=== PATIENT | male | born 1965 | race Caucasian/White ===

== ENCOUNTER 2018-01-13 12:02 | Emergency (ER) | payer OTHER ==
[~2018-01-13] VITALS: Ht 182.9 cm; Wt 95.3 kg
--- NOTE | ~2018-01-13 | EKG ---
[place] [address] [address] [place] [address] ELECTROCARDIOGRAM REPORT Name: DU HOLLOWAY Room #: REG KIMMIE Degroot#: [id number] Admission: 01/13/18 Attend Phys: Discharge: Date of : 65 Report #: [id number] THIS REPORT FOR: //name// [facility] ED Test Date: 2018-01-13 Test Time: 13:14:04 Pat Name: DU HOLLOWAY Department: Room: Gender: [place]: : 1965 Requested By: Jesu Cotto Order Number: [id number] MD: Elroy Fernandez Measurements Intervals [place] Rate: 64 P: 60 HI: 172 QRS: 42 QRSD: 87 T: 60 QT: 407 QTc: 420 Interpretive Statements Sinus rhythm Normal tracing No previous ECG available for comparison Electronically Signed On 01-13-2018 14:59:29 CDT by Elroy Fernandez [email or web address] <ELECTRONICALLY SIGNED> By: Elroy Fernandez MD, LOCATED WITHIN [facility] 01/13/18 1459 1314 1314 Elroy Fernandez MD, FACC /EPI
[2018-01-13 12:38] LABS: ABSOLUTE NEUTROPHILS 5.4 thou/uL (1.4-8.2); BASOPHILS 1.4 % (0.0-2.0); EOSINOPHILS 3.3 % (0.0-3.0); HEMATOCRIT 50.7 % (42.0-52.0); HEMOGLOBIN 17.6 gm/dL (14.0-18.0); LYMPHOCYTES 28.9 % (24.0-44.0); MCH 28.4 pg (26.0-34.0); MCHC 34.8 g/dL (28.0-37.0); MCV 81.8 fL (80.0-100.0); PLATELET COUNT 294 thou/uL (150-400); POLYS 59.4 % (36.0-66.0); RDW 13.5 % (10.5-14.5)
[2018-01-13 12:49] LABS: ANION GAP 10 mmol/L (7-16); BUN 6 mg/dL (7-18); CALCIUM 8.9 mg/dL (8.5-10.1); CHLORIDE 101 mmol/L (98-107); CO2 25 mmol/L (21-32); CREATININE 0.9 mg/dL (0.7-1.3); GLUCOSE 92 mg/dL (74-106); POTASSIUM 3.6 mmol/L (3.5-5.1); SODIUM 136 mmol/L (136-145)
[2018-01-13 12:52] LABS: APTT 30.1 Seconds (24.5-32.8); PROTIME 10.7 Seconds (9.3-11.4)
[2018-01-13 12:57] LABS: SGOT 20 U/L (15-37); SGPT 29 U/L (30-65); TOTAL BILIRUBIN 1.1 mg/dL (<0.1-1.0); TOTAL PROTEIN 7.3 g/dL (6.4-8.2); TROPONIN-I <0.06 ng/mL (<0.06)
[2018-01-13 14:17] VITALS: BP 126/86
== END 2018-01-13 14:20 | disposition short-term general hospital (02) ==
LOC: ER 12:02
PROVIDERS: Emergency Medicine
DX: H54.61 Unqualified visual loss, right eye, normal vision left eye (principal); M25.542 Pain in joints of left hand; M25.541 Pain in joints of right hand; Z77.098 Contact with and (suspected) exposure to other hazardous, chiefly nonmedicinal, chemicals; F17.210 Nicotine dependence, cigarettes, uncomplicated; M54.5 Low back pain